=== PATIENT | male | born 1950 | race Caucasian/White ===

== ENCOUNTER 2023-09-11 09:16 | Outpatient (CLI) | payer MEDICARE, BC | END 2023-09-11 09:17 | disposition home or self-care (01) | LOC: CSHRAD 09:16 | PROVIDERS: ATTEND Nurse Practitioner Adult Health | DX: R05.3 Chronic cough (principal) | CPT/HCPCS: 71046 ==

== ENCOUNTER 2025-08-09 10:24 | Outpatient (CLI) | payer MEDICARE, BC | END 2025-08-09 10:25 | disposition home or self-care (01) | LOC: CSHRAD 10:24 | PROVIDERS: ATTEND Internal Medicine | DX: R76.11 Nonspecific reaction to tuberculin skin test without active tuberculosis (principal); I89.8 Other specified noninfective disorders of lymphatic vessels and lymph nodes | CPT/HCPCS: 71046 ==